=== PATIENT | female | born 1985 | race Caucasian/White ===

== ENCOUNTER 2021-11-09 11:54 | Emergency (ER) | payer MEDICAID ==
[~2021-11-09] VITALS: Ht 160 cm; Wt 59.0 kg
[2021-11-09] MEDS ORDERED: MORPHINE SULFATE 10 MG/ML CPJ IM ONE (12:30)
[2021-11-09] MEDS ORDERED: BACITRACIN ZINC OINT UDPKT TOP ONE (12:30)
[2021-11-09] MEDS ORDERED: HYDR-4001 MT (13:02)
[2021-11-09] MEDS ORDERED: MUPI22OI2 TP (13:02)
[2021-11-09] MEDS ORDERED: IBUP-2029 MT (13:10)
[2021-11-09 13:44] VITALS: BP 134/78
== END 2021-11-09 13:48 | disposition home or self-care (01) ==
LOC: ER 11:54
DX: S30.810A Abrasion of lower back and pelvis, initial encounter (principal); F17.210 Nicotine dependence, cigarettes, uncomplicated; V49.9XXA Car occupant (driver) (passenger) injured in unspecified traffic accident, initial encounter; Y93.89 Activity, other specified; Y92.410 Unspecified street and highway as the place of occurrence of the external cause
CPT/HCPCS: 96372; 99283; J2270